=== PATIENT | female | born 1980 | race Caucasian/White ===

== ENCOUNTER 2020-05-06 09:10 | Emergency (ER) | payer MEDICAID ==
[~2020-05-06] VITALS: Ht 172.7 cm; Wt 117.0 kg
[2020-05-06] MEDS ORDERED: LIDOCAINE 1%/EPI 1:100,000 10 ML VIAL IJ NR (10:15)
[2020-05-06] MEDS ORDERED: BACITRACIN ZINC OINT UDPKT TOP NR (10:15)
[2020-05-06] MEDS ORDERED: TETANUS, DIPHTHERIA, PERTUSSIS VAC/PF 0.5ML (>7YR OLD) IM ONE (10:15)
[2020-05-06] MEDS ORDERED: HYDROCODONE/ACETAMINOPHEN 5/325MG TABLET PO NR (10:15)
[2020-05-06] MEDS ORDERED: ONDANSETRON HCL 4MG/2ML INJ IM STA (10:59)
[2020-05-06] MEDS ORDERED: AMPICILLIN SOD/SULBACTAM NA 1.5 G in SODIUM CHLORIDE 0.9% 50 ML IV STA (13:50)
[2020-05-06 14:34] VITALS: BP 131/80
== END 2020-05-06 14:58 | disposition short-term general hospital (02) ==
LOC: ER 09:10
DX: S02.2XXA Fracture of nasal bones, initial encounter for closed fracture (principal); S02.40DA Maxillary fracture, left side, initial encounter for closed fracture; S01.412A Laceration without foreign body of left cheek and temporomandibular area, initial encounter; G40.909 Epilepsy, unspecified, not intractable, without status epilepticus; Y08.89XA Assault by other specified means, initial encounter; Y93.89 Activity, other specified; Y92.488 Other paved roadways as the place of occurrence of the external cause
CPT/HCPCS: 12013; 70450; 70486; 81025; 90715; 96365; 96372; 99285; J0295; J2405; J3490

== ENCOUNTER 2020-05-11 10:27 | Emergency (ER) | payer MEDICAID ==
[~2020-05-11] VITALS: Ht 172.7 cm; Wt 111.0 kg
[2020-05-11 10:30] VITALS: BP 173/152
== END 2020-05-11 12:17 | disposition home or self-care (01) ==
LOC: ER 10:27
DX: Z48.02 Encounter for removal of sutures (principal)
CPT/HCPCS: 99281